=== PATIENT | female | born 2005 | race Caucasian/White ===

== ENCOUNTER 2024-10-15 19:12 | Emergency (ER) | payer BC ==
[2024-10-15 20:30] LABS: Bilirubin Negative (Negative); Blood, Urine Negative (Negative); Clarity Clear (Clear); Glucose, Urine (Dipstick) Negative (Negative); Ketone, Urine Trace mg/dL (Negative); Leukocyte Negative (Negative); Nitrite Negative (Negative); Protein, Urine (Dipstick) Negative (Neg-Trace); Urobilinogen 0.2 mg/dL (Less than 2)
[2024-10-15 20:31] LABS: Bacteria/HPF Rare-Few HPF (None Seen); CAUTI Indications for Culture Dysuria,urgency,freq; RBC/HPF 0-3 HPF (0-3); Squamous Epithelial 0-3 HPF (0-3); Urine Culture Reflex No No; WBC/HPF 0-3 HPF (0-3)
== END 2024-10-15 21:10 | disposition home or self-care (01) ==
LOC: MADERS 19:12
DX: K59.00 Constipation, unspecified (principal)
CPT/HCPCS: 81001; 84702; 99283